=== PATIENT | female | born 1995 | race Caucasian/White ===

== ENCOUNTER 2017-03-24 19:35 | Emergency (ER) | payer OTHER ==
--- NOTE | 2017-03-24 22:09 | ED CLINICAL REPORT ---
Clinical Report - Physicians/Mid Levels [facility] [address] [place] [address] 03/24/2017 19:36 Patient: MÓNICA TOVAR Time Seen: 20:35 Mason 2016. Arrived- By private vehicle. Historian- patient. HISTORY OF PRESENT ILLNESS Chief Complaint: RIGHT FLANK PAIN. This started 90 mins and now gone. The symptoms are described as moderate. The patient has had lower back pain and flank pain. The patient has had urinary frequency. (Patient at 6 PM today sustaining sudden sharp flank pain on the right posterior back. Patient reports the pain was not exacerbated by any movement. She was doing some yard work today, which was landing nature, however did not have pain with such. Patient reports she had some nausea when the pain started. She took Flexeril at onset of such. Patient reports no urgency or dysuria Last menstrual period about 2-3 weeks previously.). REVIEW OF SYSTEMS No nausea, diarrhea, black stools, headache or chills. No skin rash. All systems otherwise negative, except as recorded above. PAST HISTORY Problems: Asthma. Immunizations. LNMP - Last Normal Menstrual Period. Additional Surgeries: no known surgeries. Medications: None. Allergies: None. SOCIAL HISTORY Never smoker. Alcohol use. PHYSICAL EXAM Appearance: Alert. No apparent distress. HEENT: Normal external inspection. CVS: Heart sounds normal. Respiratory: No respiratory distress. Breath sounds normal. Abdomen: Soft and nontender. Bowel sounds normal. No abdominal tenderness. The bowel sounds are not abnormal. Back: No CVA tenderness. Skin: Skin warm. Normal skin color. Neuro: Oriented X 3. LABS, X-RAYS, AND EKG Abdominal CT: IMPRESSION: 1. 2 mm right distal ureteral calculus causing minimal to mild hydroureteronephrosis. 2. Punctate left intrarenal calcification too small to measure. 3. Findings called to the emergency room. All CT scans at this facility use dose modulation, iterative reconstruction, and/or weight-based dosing when appropriate to reduce radiation dose to as low as reasonably achievable. Electronically Final signed by:Meghna Richter MD 03/24/2017 10:13:48 PM. Laboratory Tests: UA-Culture if indicated: (MEDARDO: 03/24/2017 20:17) ( [facility] 03/24/2017 20:57) Final results Test Result Flag Units (Reference) URINE COLOR YELLOW URINE APPEARANCE SL CLOUDY URINE GLUCOSE NEGATIVE (NEGATIVE) URINE BILIRUBIN NEGATIVE (NEGATIVE) URINE KETONE NEGATIVE (NEGATIVE) URINE SPECIFIC GRAVITY 1.015 (1.010-1.030) URINE PH 6.0 (5.0-8.0) URINE PROTEIN NEGATIVE (NEGATIVE) URINE UROBILINOGEN 0.2 EU/dL (0.2-1.0) URINE NITRITE NEGATIVE (NEGATIVE) URINE BLOOD 3+ (NEGATIVE) URINE LEUK ESTERASE NEGATIVE (NEGATIVE) URINE RBC 50-75 rbc/hpf (0-1) URINE WBC 1-3 wbc/hpf (0-1) URINE EPITHELIAL CELLS 1-3 EPI/hpf (0-5) URINE BACTERIA TRACE (<1+) (NONE SEEN) URINE COMMENT CULT NOT INDICATED URINE CULTURES ARE SET-UP BASED ON THE FOLLOWING CRITERIA:POSITIVE NITRITEPOSITIVE LEUKOCYTE ESTERASEGREATER THAN 10 WHITE BLOOD CELLSMODERATE (2+) OR GREATER BACTERIA Urine: (MEDARDO: 03/24/2017 20:17) ( [facility] 03/24/2017 20:36) Final results Test Result Flag Units (Reference) URINE NEGATIVE CBC w Diff: (MEDARDO: 03/24/2017 21:40) ( [facility] 03/24/2017 21:58) Final results Test Result Flag Units (Reference) WHITE BLOOD COUNT 7.8 K/uL (4.5-11.5) RED BLOOD COUNT 4.19 M/uL (4.00-5.20) HEMOGLOBIN 12.7 gm/dL (12.0-16.0) HEMATOCRIT 37.4 % (36.0-46.0) MEAN CELL VOLUME 89 fL (80-100) MEAN CORPUSCULAR HGB 30 pg (26-34) MEAN CORPUSCULAR HGB CONC 34 g/dL (31-37) RED CELL DISTRIBUTION WIDTH 11.8 % (11.6-14.8) PLATELET COUNT 266 K/uL (150-400) NEUTROPHIL % 69.9 % (50-75) LYMPH % 18.2 L % (25-40) MONO % 7.8 % (3-14) EOSINOPHIL % 3.6 % (0-4) BASOPHIL % 0.5 % (0-2) BMP: (MEDARDO: 03/24/2017 21:40) ( [facility]sg[facility] 03/24/2017 22:17) Final results Test Result Flag Units (Reference) GLUCOSE 88 mg/dL (70-110) BUN 10 mg/dL (7-18) CREATININE 0.7 mg/dL (0.6-1.3) Estimated GFR >60 mL/min Estimated GFR- >60 mL/min Note: Persistent reduction over 3 months in eGFR<60 mL/min/1.73 m2 defines CKD. Patients with eGFR values>=60 mL/min/1.73 m2 may also have CKD if evidence ofpersistent proteinuria. Additional information may be foundat www.kidney.org. SODIUM 141 mmol/L (136-145) POTASSIUM 3.8 mmol/L (3.5-5.1) CHLORIDE 104 mmol/L (98-107) CARBON DIOXIDE 27 mmol/L (21-32) CALCIUM 8.8 mg/dL (8.5-10.1) . PROGRESS AND PROCEDURES Course of Care: Pt with with no signs of infection. Patient very stable. No signs of. Patient with no signs of acute surgical abdomen. Small nephrolithiasis that she will likely very well pass. 03/24/2017 20:18 BP: 123/68. HR: 77. RR: 18. O2 saturation: 100%. Temp: 97.7 F. Pain level now: 11/02. Patient is stable. Symptoms better. Patient/family counseled. Differential Diagnosis: I considered gastric etiology, gastritis, gastroenteritis, acute appendicitis, diverticulitis, small bowel obstruction, gallbladder disease, biliary colic, hepatitis, splenic injury, splenic rupture, intraabdominal abscess, urinary tract infection, ovarian cyst, pelvic inflammatory disease, pelvic abscess, abdominal aortic aneurysm, myocardial infarction and diabetic ketoacidosis as a possible cause of abdominal pain in this patient. This is a partial list of diagnoses considered. Disposition: Discharged. Condition: good. CLINICAL IMPRESSION Right nephrolithiasis with renal colic. INSTRUCTIONS (urology: [phone]). Warnings: Further evaluation is necessary. Prescription Medications: Hydrocodone/APAP 5mg / 325mg: take 1 orally every 6 hours as needed for pain. Dispense twenty (20). No refill. Zofran (orally disintegrating tablets) 4 mg: take 1 orally every 6 hours for 5 days as needed for nausea. Dispense twenty (20). No refill. Flomax 0.4 mg: take 1 orally every 24 hours. Dispense ten (10). No refills. Substitution is permissible. Follow-up: Follow up with a specialist in five days. Understanding of the discharge instructions verbalized by patient. (Electronically signed by Kathy Chong P.A.-C 03/24/2017 22:26)
--- NOTE | 2017-03-24 22:09 | ED ORDER SUMMARY ---
..... Patient: MÓNICA TOVAR OrderSheet [facility] VisitID: [id number] [place] [address] 21y, F Registration Date/Time: 03/24/2017 ORDER SHEET Weight: 56.6 kg (stated) Allergies: None GENERAL ORDERS: UA-Culture if indicated Urgent (20:03/24/2017 EKoroleva P.A.-C) (Ack 20:23 LMuller) (20:27 DDavis R.N.) Urine Urgent (20:03/24/2017 EKoroleva P.A.-C) (Ack 20:23 LMuller) (20:27 DDavis R.N.) CT Abd/Pel wo Cont Urgent (21:03/24/2017 EKoroleva P.A.-C) (Ack 21:09 LMuller) (21:23 LMuller) CBC w Diff Urgent (21:03/24/2017 EKoroleva P.A.-C) (Ack 21:09 LMuller) (21:44 DDavis R.N.) BMP Urgent (21:03/24/2017 EKoroleva P.A.-C) (Ack 21:09 LMuller) (21:44 DDavis R.N.) MEDICATION ORDERS: IV FLUIDS: Toradol IV 30 mg (NOW) (21:03/24/2017 EKoroleva P.A.-C) (Ack 21:32 RCollier R.N.) (21:45 DDavis R.N.) IV Saline Lock (21:03/24/2017 EKoroleva P.A.-C) (Ack 21:32 RCollier R.N.) (21:44 DDavis R.N.) ORDER SHEET NOTES: [Electronically signed by Kathy ChongA.-C (22:26 03/24/2017)] [Electronically signed by Jayce White R.N. (22:31 03/24/2017)] [Electronically locked/signed by Jayce White R.N. (22:31 03/24/2017)]
--- NOTE | 2017-03-24 22:09 | ED NURSING NOTES ---
Clinical Report - Nurses [address] [place] [address] 03/24/2017 19:36 Patient: MÓNICA TOVAR TRIAGE Triage time 20:19. Acuity: LEVEL 3. Chief Complaint: (lower back pain with urinary frequency). Alert. No acute distress. TRACEY COMA SCORE: [place] Coma Scale: 15- eyes open spontaneously (4); best verbal response- oriented x 4 (5); best motor response- obeys commands (6). --20:25 Jayce White R.N. 20:18 03/24/17. BP: 123/68 taken on the left arm, while sitting. HR: 77. RR: 18 (regular and unlabored). O2 saturation: 100% on room air. Temp: 97.7 F (oral). Pain level now: 11/02. --20:25 Jayce White R.N. Weight: 56.6 kg stated. Height/Length: 65 inches Per Patient. BMI: 20.8. --20:19 Jayce White R.N. Medications None. --20:21 Jayce White R.N. Allergies None. --20:21 Jayce White R.N. History Arrived by private vehicle. Historian: patient. Accompanied by friend. This started today. Onset. (7 PM). ( back pain, muscle relaxer around 7 pm). SOCIAL HX: Never smoker. Occasional alcohol use. No drug use. FALL RISK ASSESSMENT: Fall risk assessment completed. No fall risk identified. NUTRITIONAL RISK ASSESSMENT: The nutritional risk assessment revealed no deficiencies. FUNCTIONAL ASSESSMENT: Functional assessment: no impairments noted. LEARNING NEEDS ASSESSMENT: The learning needs assessment revealed no barriers. --20:25 Jayce White R.N. PAST MEDICAL HX: Last normal menstrual period- 3 weeks ago. --20:27 Jayce White R.N. PROBLEMS: Asthma. --20:21 Jayce White R.N. ADDITIONAL SURGERIES: no known surgeries. Interventions ID band on patient. To treatment room. --20:25 Jayce White R.N. PHYSICAL ASSESSMENT Ambulatory to room. GENERAL / NEURO / PSYCH: Alert. Oriented X 4. RESPIRATORY: Respirations not labored. Breath sounds within normal limits. CVS: Capillary refill less than 2 seconds. GI / : Abdomen soft and nontender. SKIN: Skin is warm and dry. --20:26 Jayce White R.N. GENERAL / NEURO / PSYCH: Does not appear anxious or in distress. --20:26 Jayce White R.N. NURSING PROGRESS NOTES Head of bed elevated. Reassurance given. Two patient identifiers checked. Call light placed in reach. Side rails up x 1. Bed placed in lowest position. Brakes of bed on. Patient ready for evaluation- chart flagged. Patient waiting for evaluation. --20:26 Jayce White R.N. 21:40 03/24/2017 Site #1 started via IV in the right antecubital space with an 20g angiocath, with aseptic technique and good blood return; one attempt. Blood drawn: rainbow set. Labeled in the presence of the patient and sent to the lab. Saline lock flushed with saline. --21:44 Jayce White R.N. 21:40 03/24/2017 Toradol IVP 30 mg given over 2 minute(s) via site #1. Allergies verified and confirmed 5 rights. IV patency established. IV site checked: no pain, redness, or swelling. IV flushed thoroughly pre- and post-medication administration. IVP given by RN. --21:45 Jayce White R.N. DISPOSITION / DISCHARGE 22:30 03/24/2017 Site #1 removed upon discharge. Manual pressure and bandage applied. --22:30 Jayce White R.N. Departure time: 22:30. Condition at departure: critical. No learning barriers present. Discharge instructions provided and reviewed with the patient. Reviewed warnings. Reviewed medication(s) side effects, precautions, dosing and course information. Prescription(s) given to the patient. Treatments reviewed. Reviewed referrals for followup. Patient verbalized understanding. Written instructions provided in Pashto. The patient was discharged home and accompanied by hardwood sawyer. She left the Emergency Department ambulatory and via private vehicle. Customer Engagement Specialist driving. --22:30 Jayce White R.N. 22:29 03/24/17. BP: 105/57 taken while sitting. HR: 64. RR: 16 (regular and unlabored). O2 saturation: 100% on room air. Pain level now: 0/10. --22:30 Jayce White R.N. Locked/Released at 03/24/2017 22:31 by Jayce White R.N.
--- NOTE | 2017-03-24 22:09 | ED NURSING NOTES ---
Clinical Report - Nurses [facility] [address] [place] [address] 03/24/2017 19:36 Patient: MÓNICA TOVAR TRIAGE Triage time 20:19. Acuity: LEVEL 3. Chief Complaint: (lower back pain with urinary frequency). Alert. No acute distress. TRACEY COMA SCORE: [place] Coma Scale: 15- eyes open spontaneously (4); best verbal response- oriented x 4 (5); best motor response- obeys commands (6). --20:25 Jayce White R.N. 20:18 03/24/17. BP: 123/68 taken on the left arm, while sitting. HR: 77. RR: 18 (regular and unlabored). O2 saturation: 100% on room air. Temp: 97.7 F (oral). Pain level now: 11/02. --20:25 Jayce White R.N. Weight: 56.6 kg stated. Height/Length: 65 inches Per Patient. BMI: 20.8. --20:19 Jayce White R.N. Medications None. --20:21 Jayce White R.N. Allergies None. --20:21 Jayce White R.N. History Arrived by private vehicle. Historian: patient. Accompanied by friend. This started today. Onset. (7 PM). ( back pain, muscle relaxer around 7 pm). SOCIAL HX: Never smoker. Occasional alcohol use. No drug use. FALL RISK ASSESSMENT: Fall risk assessment completed. No fall risk identified. NUTRITIONAL RISK ASSESSMENT: The nutritional risk assessment revealed no deficiencies. FUNCTIONAL ASSESSMENT: Functional assessment: no impairments noted. LEARNING NEEDS ASSESSMENT: The learning needs assessment revealed no barriers. --20:25 Jayce White R.N. PAST MEDICAL HX: Last normal menstrual period- 3 weeks ago. --20:27 Jayce White R.N. PROBLEMS: Asthma. --20:21 Jayce White R.N. ADDITIONAL SURGERIES: no known surgeries. Interventions ID band on patient. To treatment room. --20:25 Jayce White R.N. PHYSICAL ASSESSMENT Ambulatory to room. GENERAL / NEURO / PSYCH: Alert. Oriented X 4. RESPIRATORY: Respirations not labored. Breath sounds within normal limits. CVS: Capillary refill less than 2 seconds. GI / : Abdomen soft and nontender. SKIN: Skin is warm and dry. --20:26 Jayce White R.N. GENERAL / NEURO / PSYCH: Does not appear anxious or in distress. --20:26 Jayce hWite R.N. NURSING PROGRESS NOTES Head of bed elevated. Reassurance given. Two patient identifiers checked. Call light placed in reach. Side rails up x 1. Bed placed in lowest position. Brakes of bed on. Patient ready for evaluation- chart flagged. Patient waiting for evaluation. --20:26 Jayce White R.N. 21:40 03/24/2017 Site #1 started via IV in the right antecubital space with an 20g angiocath, with aseptic technique and good blood return; one attempt. Blood drawn: rainbow set. Labeled in the presence of the patient and sent to the lab. Saline lock flushed with saline. --21:44 Jayec White R.N. 21:40 03/24/2017 Toradol IVP 30 mg given over 2 minute(s) via site #1. Allergies verified and confirmed 5 rights. IV patency established. IV site checked: no pain, redness, or swelling. IV flushed thoroughly pre- and post-medication administration. IVP given by RN. --21:45 Jayce White R.N. DISPOSITION / DISCHARGE 22:30 03/24/2017 Site #1 removed upon discharge. Manual pressure and bandage applied. --22:30 Jayce White R.N. Departure time: 22:30. Condition at departure: critical. No learning barriers present. Discharge instructions provided and reviewed with the patient. Reviewed warnings. Reviewed medication(s) side effects, precautions, dosing and course information. Prescription(s) given to the patient. Treatments reviewed. Reviewed referrals for followup. Patient verbalized understanding. Written instructions provided in Indonesian. The patient was discharged home and accompanied by pest control service technician. She left the Emergency Department ambulatory and via private vehicle. Bottled Beverage Inspector driving. --22:30 Jayce White R.N. 22:29 03/24/17. BP: 105/57 taken while sitting. HR: 64. RR: 16 (regular and unlabored). O2 saturation: 100% on room air. Pain level now: 0/10. --22:30 Jayce White R.N. Locked/Released at 03/24/2017 22:31 by Jayce White R.N.
--- NOTE | 2017-03-24 22:09 | ED ORDER SUMMARY ---
..... Patient: MÓNICA TOVAR OrderSheet [facility] VisitID: [id number] [place] [address] 21y, F Registration Date/Time: 03/24/2017 ORDER SHEET Weight: 56.6 kg (stated) Allergies: None GENERAL ORDERS: UA-Culture if indicated Urgent (20:03/24/2017 EKoroleva P.A.-C) (Ack 20:23 LMuller) (20:27 DDavis R.N.) Urine Urgent (20:03/24/2017 EKoroleva P.A.-C) (Ack 20:23 LMuller) (20:27 DDavis R.N.) CT Abd/Pel wo Cont Urgent (21:03/24/2017 EKoroleva P.A.-C) (Ack 21:09 LMuller) (21:23 LMuller) CBC w Diff Urgent (21:03/24/2017 EKoroleva P.A.-C) (Ack 21:09 LMuller) (21:44 DDavis R.N.) BMP Urgent (21:03/24/2017 EKoroleva P.A.-C) (Ack 21:09 LMuller) (21:44 DDavis R.N.) MEDICATION ORDERS: IV FLUIDS: Toradol IV 30 mg (NOW) (21:03/24/2017 EKoroleva P.A.-C) (Ack 21:32 RCollier R.N.) (21:45 DDavis R.N.) IV Saline Lock (21:03/24/2017 EKoroleva P.A.-C) (Ack 21:32 RCollier R.N.) (21:44 DDavis R.N.) ORDER SHEET NOTES: [Electronically signed by Kathy ChongA.-C (22:26 03/24/2017)] [Electronically signed by Jayce White R.N. (22:31 03/24/2017)] [Electronically locked/signed by Jayce White R.N. (22:31 03/24/2017)]
--- NOTE | 2017-03-24 22:09 | ED CLINICAL REPORT ---
Clinical Report - Physicians/Mid Levels [facility] [address] [place] [address] 03/24/2017 19:36 Patient: MÓNICA TOVAR Time Seen: 20:35 Mason 2016. Arrived- By private vehicle. Historian- patient. HISTORY OF PRESENT ILLNESS Chief Complaint: RIGHT FLANK PAIN. This started 90 mins and now gone. The symptoms are described as moderate. The patient has had lower back pain and flank pain. The patient has had urinary frequency. (Patient at 6 PM today sustaining sudden sharp flank pain on the right posterior back. Patient reports the pain was not exacerbated by any movement. She was doing some yard work today, which was landing nature, however did not have pain with such. Patient reports she had some nausea when the pain started. She took Flexeril at onset of such. Patient reports no urgency or dysuria Last menstrual period about 2-3 weeks previously.). REVIEW OF SYSTEMS No nausea, diarrhea, black stools, headache or chills. No skin rash. All systems otherwise negative, except as recorded above. PAST HISTORY Problems: Asthma. Immunizations. LNMP - Last Normal Menstrual Period. Additional Surgeries: no known surgeries. Medications: None. Allergies: None. SOCIAL HISTORY Never smoker. Alcohol use. PHYSICAL EXAM Appearance: Alert. No apparent distress. HEENT: Normal external inspection. CVS: Heart sounds normal. Respiratory: No respiratory distress. Breath sounds normal. Abdomen: Soft and nontender. Bowel sounds normal. No abdominal tenderness. The bowel sounds are not abnormal. Back: No CVA tenderness. Skin: Skin warm. Normal skin color. Neuro: Oriented X 3. LABS, X-RAYS, AND EKG Abdominal CT: IMPRESSION: 1. 2 mm right distal ureteral calculus causing minimal to mild hydroureteronephrosis. 2. Punctate left intrarenal calcification too small to measure. 3. Findings called to the emergency room. All CT scans at this facility use dose modulation, iterative reconstruction, and/or weight-based dosing when appropriate to reduce radiation dose to as low as reasonably achievable. Electronically Final signed by:Meghna Richter MD 03/24/2017 10:13:48 PM. Laboratory Tests: UA-Culture if indicated: (MEDARDO: 03/24/2017 20:17) ( [facility] 03/24/2017 20:57) Final results Test Result Flag Units (Reference) URINE COLOR YELLOW URINE APPEARANCE SL CLOUDY URINE GLUCOSE NEGATIVE (NEGATIVE) URINE BILIRUBIN NEGATIVE (NEGATIVE) URINE KETONE NEGATIVE (NEGATIVE) URINE SPECIFIC GRAVITY 1.015 (1.010-1.030) URINE PH 6.0 (5.0-8.0) URINE PROTEIN NEGATIVE (NEGATIVE) URINE UROBILINOGEN 0.2 EU/dL (0.2-1.0) URINE NITRITE NEGATIVE (NEGATIVE) URINE BLOOD 3+ (NEGATIVE) URINE LEUK ESTERASE NEGATIVE (NEGATIVE) URINE RBC 50-75 rbc/hpf (0-1) URINE WBC 1-3 wbc/hpf (0-1) URINE EPITHELIAL CELLS 1-3 EPI/hpf (0-5) URINE BACTERIA TRACE (<1+) (NONE SEEN) URINE COMMENT CULT NOT INDICATED URINE CULTURES ARE SET-UP BASED ON THE FOLLOWING CRITERIA:POSITIVE NITRITEPOSITIVE LEUKOCYTE ESTERASEGREATER THAN 10 WHITE BLOOD CELLSMODERATE (2+) OR GREATER BACTERIA Urine: (MEDARDO: 03/24/2017 20:17) ( [facility] 03/24/2017 20:36) Final results Test Result Flag Units (Reference) URINE NEGATIVE CBC w Diff: (MEDARDO: 03/24/2017 21:40) ( [facility] 03/24/2017 21:58) Final results Test Result Flag Units (Reference) WHITE BLOOD COUNT 7.8 K/uL (4.5-11.5) RED BLOOD COUNT 4.19 M/uL (4.00-5.20) HEMOGLOBIN 12.7 gm/dL (12.0-16.0) HEMATOCRIT 37.4 % (36.0-46.0) MEAN CELL VOLUME 89 fL (80-100) MEAN CORPUSCULAR HGB 30 pg (26-34) MEAN CORPUSCULAR HGB CONC 34 g/dL (31-37) RED CELL DISTRIBUTION WIDTH 11.8 % (11.6-14.8) PLATELET COUNT 266 K/uL (150-400) NEUTROPHIL % 69.9 % (50-75) LYMPH % 18.2 L % (25-40) MONO % 7.8 % (3-14) EOSINOPHIL % 3.6 % (0-4) BASOPHIL % 0.5 % (0-2) BMP: (MEDARDO: 03/24/2017 21:40) ( MsgRcvd 03/24/2017 22:17) Final results Test Result Flag Units (Reference) GLUCOSE 88 mg/dL (70-110) BUN 10 mg/dL (7-18) CREATININE 0.7 mg/dL (0.6-1.3) Estimated GFR >60 mL/min Estimated GFR- >60 mL/min Note: Persistent reduction over 3 months in eGFR<60 mL/min/1.73 m2 defines CKD. Patients with eGFR values>=60 mL/min/1.73 m2 may also have CKD if evidence ofpersistent proteinuria. Additional information may be foundat www.kidney.org. SODIUM 141 mmol/L (136-145) POTASSIUM 3.8 mmol/L (3.5-5.1) CHLORIDE 104 mmol/L (98-107) CARBON DIOXIDE 27 mmol/L (21-32) CALCIUM 8.8 mg/dL (8.5-10.1) . PROGRESS AND PROCEDURES Course of Care: Pt with with no signs of infection. Patient very stable. No signs of. Patient with no signs of acute surgical abdomen. Small nephrolithiasis that she will likely very well pass. 03/24/2017 20:18 BP: 123/68. HR: 77. RR: 18. O2 saturation: 100%. Temp: 97.7 F. Pain level now: 11/02. Patient is stable. Symptoms better. Patient/family counseled. Differential Diagnosis: I considered gastric etiology, gastritis, gastroenteritis, acute appendicitis, diverticulitis, small bowel obstruction, gallbladder disease, biliary colic, hepatitis, splenic injury, splenic rupture, intraabdominal abscess, urinary tract infection, ovarian cyst, pelvic inflammatory disease, pelvic abscess, abdominal aortic aneurysm, myocardial infarction and diabetic ketoacidosis as a possible cause of abdominal pain in this patient. This is a partial list of diagnoses considered. Disposition: Discharged. Condition: good. CLINICAL IMPRESSION Right nephrolithiasis with renal colic. INSTRUCTIONS (urology: [phone]). Warnings: Further evaluation is necessary. Prescription Medications: Hydrocodone/APAP 5mg / 325mg: take 1 orally every 6 hours as needed for pain. Dispense twenty (20). No refill. Zofran (orally disintegrating tablets) 4 mg: take 1 orally every 6 hours for 5 days as needed for nausea. Dispense twenty (20). No refill. Flomax 0.4 mg: take 1 orally every 24 hours. Dispense ten (10). No refills. Substitution is permissible. Follow-up: Follow up with a specialist in five days. Understanding of the discharge instructions verbalized by patient. (Electronically signed by Kathy Chong P.A.-C 03/24/2017 22:26)
--- NOTE | 2017-03-24 22:13 | DIAGNOSTIC IMAGING REPORT ---
PROCEDURE: CT ABDOMEN/PELVIS W/O CONTRAST INDICATION: ABDOMINAL PAIN TECHNIQUE: Axial CT images were obtained through the abdomen and pelvis without IV contrast. Coronal and sagittal reformations were created. COMPARISON: None. FINDINGS: Trace right hydronephrosis. Vague punctate densities within the intrarenal collecting system on the right without a discrete calcification. A punctate calcification within the left mid pole collecting system. Mild right hydroureter. 2 mm punctate calculus in the right distal ureter about 2 cm from the right ureterovesicular junction. No urinary bladder calcifications. Clear lung bases. Normal sized heart. No hiatal hernia. The unenhanced appearance of the liver, gallbladder, adrenal glands, kidneys, pancreas and spleen is normal. The abdominal aorta is normal in its course and caliber. There are no suspicious calcifications, retroperitoneal adenopathy or masses. The stomach, upper bowel loops, and mesentery are normal. Intact anterior abdominal wall. No free fluid or inflammation. The unenhanced appearance of the uterus, ovaries, urinary bladder, pelvic vessels, and pelvic bowel loops is normal. Normal appendix. No suspicious calcifications, or mass. Trace physiologic free fluid. Intact osseous structures. IMPRESSION: 1. 2 mm right distal ureteral calculus causing minimal to mild hydroureteronephrosis. 2. Punctate left intrarenal calcification too small to measure. 3. Findings called to the emergency room. All CT scans at this facility use dose modulation, iterative reconstruction, and/or weight-based dosing when appropriate to reduce radiation dose to as low as reasonably achievable.
--- NOTE | 2017-03-24 22:31 | ED MAR SUMMARY ---
..... Medication Administration Record [facility] [address] [place] [address] Patient: MÓNICA TOVAR Visit ID: [id number] 21y, F Weight: 56.6 kg Height/Length: 65 in BMI: 20.8 ALLERGIES: None Given 21:40 03/24/2017 Jayce White R.N. Medication Administered: TORADOL [IVP], Dose: 30 mg IVP over 2 minute(s), Site: #1 right AC. Medication Ordered: Toradol IV 30 mg (NOW).
--- NOTE | 2017-03-24 22:31 | ED MAR SUMMARY ---
..... Medication Administration Record [facility] [address] [place] [address] Patient: MÓNICA TOVAR Visit ID: [id number] 21y, F Weight: 56.6 kg Height/Length: 65 in BMI: 20.8 ALLERGIES: None Given 21:40 03/24/2017 Jayce White R.N. Medication Administered: TORADOL [IVP], Dose: 30 mg IVP over 2 minute(s), Site: #1 right AC. Medication Ordered: Toradol IV 30 mg (NOW).
--- NOTE | 2017-03-24 22:31 | ED DISCHARGE INSTRUCTIONS ---
Patient: MÓNICA TOVAR General Instructions [facility] VisitID: [id number] [place] [address] 21y, F Registration Date/Time: 03/24/2017 Right nephrolithiasis with renal colic. INSTRUCTIONS (urology: [phone]). Warnings: Further evaluation is necessary. Prescription Medications: Hydrocodone/APAP 5mg / 325mg: take 1 orally every 6 hours as needed for pain. Dispense twenty (20). No refill. Zofran (orally disintegrating tablets) 4 mg: take 1 orally every 6 hours for 5 days as needed for nausea. Dispense twenty (20). No refill. Flomax 0.4 mg: take 1 orally every 24 hours. Dispense ten (10). No refills. Substitution is permissible. Follow-up: Follow up with a specialist in five days. Understanding of the discharge instructions verbalized by patient. ADDITIONAL INFORMATION Kidney Stone (W/ Colic) The sharp cramping pain and nausea/vomiting that you have is due to a small stone which has formed in the kidney and is now passing down a narrow tube (ureter) on its way to your bladder. Once it reaches your bladder, the pain will stop. The stone may pass in your urine stream in one piece. [The size may be 1/16" to 1/4" (1-6mm)]. Or, the stone may also break up into jovanny fragments which you may not even notice. Once you have had a kidney stone, you are at risk for developing another one in the future. Home Care: Drink plenty of fluids (at least 8 to 10 glasses of water a day). Most stones will pass on their own, but may take from a few hours to a few days. Sometimes the stone is too large to pass by itself and special methods will have to be used to remove the stone. Each time you urinate, do so in a jar. Pour the urine from the jar through the strainer and into the toilet. Continue doing this until 24 hours after your pain stops. By then, if there was a kidney stone, it should pass from your bladder. Some stones dissolve into sand-like particles and pass right through the strainer. In that case, you wont ever see a stone. Save any stone that you find in the strainer and bring it to your doctor for analysis. It may be possible to prevent certain types of stones from forming. Therefore, it is important to know what kind of stone you have. Try to stay as active as possible since this will help the stone pass. Do not stay in bed unless your pain prevents you from getting up. You may notice a red, pink or brown color to your urine. This is normal while passing a kidney stone. Follow Up with your doctor or return to this facility if the pain lasts more than 48 hours. Get Prompt Medical Attention if any of the following occur: Pain that is not controlled by the medicine given Repeated vomiting or unable to keep down fluids Weakness, dizziness or fainting Fever of 100.4F (38C) or higher, or as directed by your healthcare provider Passage of solid red or brown urine (can't see through it) or urine with lots of blood clots Unable to pass urine for 8 hours and increasing bladder pressure Blood In The Urine Blood in the urine ("hematuria") has many possible causes. If it occurs after an injury (such as a car accident or fall), it is most often a sign of bruising to the kidney or bladder. Common medical causes of blood in the urine include urinary tract infection, kidney stone, inflammation, tumors, or certain other diseases of the kidney or bladder. Menstruation can cause blood to appear in the urine sample, although it is not coming from the urinary tract. If only a trace amount of blood is present, it will show up on the urine test, even though the urine may be yellow and not pink or red. This may occur with any of the above conditions, as well as heavy exercise or high fever. In this case, your doctor may want to repeat the urine test on another day. This will show if the blood is still present. If so, then other tests can be done to find out the cause. Home Care: If your urine does not appear bloody (pink, brown or red) then you do not need to restrict your activity in any way. If you can see blood in your urine, rest and avoid heavy exertion until your next exam. Do not use aspirin or anti-inflammatory medicine like ibuprofen (Motrin, Advil) or naproxen (Naprosyn, Aleve). These thin the blood and may increase bleeding. Follow Up with your doctor or as advised by our staff. If you were injured and had blood in your urine, you should have a repeat urine test in 1-2 days. Contact your doctor or return to this facility for this test. [NOTE: A radiologist will review any X-rays that were taken. We will notify you of any new findings that may affect your care.] Get Prompt Medical Attention if any of the following occur: Bright red blood or blood clots in the urine (if a new symptom) Weakness, dizziness or fainting New groin, abdominal or back pain Fever of 100.4F (38C) or higher, or as directed by your healthcare provider Repeated vomiting Bleeding from nose, gums or easy bruising Hydrocodone Bitartrate, Acetaminophen Oral tablet What is this medicine? ACETAMINOPHEN; HYDROCODONE (a set a ANETA summer fen; yojana droe KOE done) is a pain reliever. It is used to treat mild to moderate pain. How should I use this medicine? Take this medicine by mouth. Swallow it with a full glass of water. Follow the directions on the prescription label. If the medicine upsets your stomach, take the medicine with food or milk. Do not take more than you are told to take. Talk to your animal caretaker supervisor regarding the use of this medicine in children. This medicine is not approved for use in children. What side effects may I notice from receiving this medicine? Side effects that you should report to your doctor or health animal care technician as soon as possible: allergic reactions like skin rash, itching or hives, swelling of the face, lips, or tongue breathing problems confusion feeling faint or lightheaded, falls stomach pain yellowing of the eyes or skin Side effects that usually do not require medical attention (report to your doctor or health animal care technician if they continue or are bothersome): nausea, vomiting stomach upset What may interact with this medicine? alcohol antihistamines isoniazid medicines for depression, anxiety, or psychotic disturbances medicines for sleep muscle relaxants naltrexone narcotic medicines (opiates) for pain phenobarbital ritonavir tramadol What if I miss a dose? If you miss a dose, take it as soon as you can. If it is almost time for your next dose, take only that dose. Do not take double or extra doses. Where should I keep my medicine? Keep out of the reach of children. This medicine can be abused. Keep your medicine in a safe place to protect it from theft. Do not share this medicine with anyone. Selling or giving away this medicine is dangerous and against the law. Store at room temperature between 15 and 30 degrees C (59 and 86 degrees F). Protect from light. Keep container tightly closed. Throw away any unused medicine after the expiration date. Discard unused medicine and used packaging carefully. Pets and children can be harmed if they find used or lost packages. What should I tell my health care provider before I take this medicine? They need to know if you have any of these conditions: brain tumor Crohn's disease, inflammatory bowel disease, or ulcerative colitis drink more than 3 alcohol-containing drinks per day drug abuse or addiction head injury heart or circulation problems kidney disease or problems going to the bathroom liver disease lung disease, asthma, or breathing problems an unusual or allergic reaction to acetaminophen, hydrocodone, other opioid analgesics, other medicines, foods, dyes, or preservatives or trying to get breast-feeding What should I watch for while using this medicine? Tell your doctor or health animal care technician if your pain does not go away, if it gets worse, or if you have new or a different type of pain. You may develop tolerance to the medicine. Tolerance means that you will need a higher dose of the medicine for pain relief. Tolerance is normal and is expected if you take the medicine for a long time. Do not suddenly stop taking your medicine because you may develop a severe reaction. Your body becomes used to the medicine. This does NOT mean you are addicted. Addiction is a behavior related to getting and using a drug for a non-medical reason. If you have pain, you have a medical reason to take pain medicine. Your doctor will tell you how much medicine to take. If your doctor wants you to stop the medicine, the dose will be slowly lowered over time to avoid any side effects. You may get drowsy or dizzy when you first start taking the medicine or change doses. Do not drive, use machinery, or do anything that may be dangerous until you know how the medicine affects you. Stand or sit up slowly. There are different types of narcotic medicines (opiates) for pain. If you take more than one type at the same time, you may have more side effects. Give your health care provider a list of all medicines you use. Your doctor will tell you how much medicine to take. Do not take more medicine than directed. Call emergency for help if you have problems breathing. The medicine will cause constipation. Try to have a bowel movement at least every 2 to 3 days. If you do not have a bowel movement for 3 days, call your doctor or health animal care technician. Too much acetaminophen can be very dangerous. Do not take Tylenol (acetaminophen) or medicines that contain acetaminophen with this medicine. Many non-prescription medicines contain acetaminophen. Always read the labels carefully. Ondansetron Oral disintegrating tablet What is this medicine? ONDANSETRON (on JONAS se violet) is used to treat nausea and vomiting caused by chemotherapy. It is also used to prevent or treat nausea and vomiting after surgery. How should I use this medicine? These tablets are made to dissolve in the mouth. Do not try to push the tablet through the foil backing. With dry hands, peel away the foil backing and gently remove the tablet. Place the tablet in the mouth and allow it to dissolve, then swallow. While you may take these tablets with water, it is not necessary to do so. Talk to your animal caretaker supervisor regarding the use of this medicine in children. Special care may be needed. What side effects may I notice from receiving this medicine? Side effects that you should report to your doctor or health animal care technician as soon as possible: allergic reactions like skin rash, itching or hives, swelling of the face, lips, or tongue breathing problems dizziness fast or irregular heartbeat feeling faint or lightheaded, falls fever and chills swelling of the hands and feet tightness in the chest Side effects that usually do not require medical attention (report to your doctor or health animal care technician if they continue or are bothersome): constipation or diarrhea headache What may interact with this medicine? Do not take this medicine with any of the following medications: -apomorphine -cisapride -dofetilide -dronedarone -pimozide -thioridazine -ziprasidone This medicine may also interact with the following medications: -carbamazepine -phenytoin -rifampicin -tramadol -other medicines that prolong the QT interval (cause an abnormal heart rhythm) What if I miss a dose? If you miss a dose, take it as soon as you can. If it is almost time for your next dose, take only that dose. Do not take double or extra doses. Where should I keep my medicine? Keep out of the reach of children. Store between 2 and 30 degrees C (36 and 86 degrees F). Throw away any unused medicine after the expiration date. What should I tell my health care provider before I take this medicine? They need to know if you have any of these conditions: heart disease history of irregular heartbeat liver disease low levels of magnesium or potassium in the blood an unusual or allergic reaction to ondansetron, granisetron, other medicines, foods, dyes, or preservatives or trying to get breast-feeding What should I watch for while using this medicine? Check with your doctor or health animal care technician as soon as you can if you have any sign of an allergic reaction. You have been given the following additional information: Kidney Stone W/ Colic Hematuria Hydrocodone Bitartrate, Acetaminophen Oral tablet Ondansetron Oral disintegrating tablet (Electronically signed by Katyh Chong P.A.-C 03/24/2017 22:26)
--- NOTE | 2017-03-24 22:31 | ED MED RECONCILIATION SUMMARY ---
Patient: MÓNICA TOVAR Medication Reconciliation Report [facility] VisitID: [id number] [address] [place] [address] 21y, F Registration Date/Time: 03/24/2017 Weight: 56.6 kg Height/Length: 65 in. BMI: 20.8 ALLERGIES: None The patient's Home Medications are listed below: NONE. The source(s) of the original Home Medication information: Not obtained. The following Medications were given to the patient in the Emergency Department: Toradol [IVP] IVP 30 mg, administered: 03/24/2017 9:40:00 PM The following Medications were prescribed to the patient: Hydrocodone/APAP 5mg / 325mg: take 1 orally every 6 hours as needed for pain. Dispense twenty (20). No refill. -- Kathy Chong, P.A.-C Zofran (orally disintegrating tablets) 4 mg: take 1 orally every 6 hours for 5 days as needed for nausea. Dispense twenty (20). No refill. -- Kathy Chong, P.A.-C Flomax 0.4 mg: take 1 orally every 24 hours. Dispense ten (10). No refills. Substitution is permissible. -- Kathy Chong, P.A.-C
--- NOTE | 2017-03-24 22:31 | ED MED RECONCILIATION SUMMARY ---
Patient: MÓNICA TOVAR Medication Reconciliation Report [facility] VisitID: [id number] [address] [place] [address] 21y, F Registration Date/Time: 03/24/2017 Weight: 56.6 kg Height/Length: 65 in. BMI: 20.8 ALLERGIES: None The patient's Home Medications are listed below: NONE. The source(s) of the original Home Medication information: Not obtained. The following Medications were given to the patient in the Emergency Department: Toradol [IVP] IVP 30 mg, administered: 03/24/2017 9:40:00 PM The following Medications were prescribed to the patient: Hydrocodone/APAP 5mg / 325mg: take 1 orally every 6 hours as needed for pain. Dispense twenty (20). No refill. -- Kathy Chong, P.A.-C Zofran (orally disintegrating tablets) 4 mg: take 1 orally every 6 hours for 5 days as needed for nausea. Dispense twenty (20). No refill. -- Kathy Chong, P.A.-C Flomax 0.4 mg: take 1 orally every 24 hours. Dispense ten (10). No refills. Substitution is permissible. -- Kathy Chong, P.A.-C
== END 2017-03-24 22:30 | disposition home or self-care (01) ==
LOC: ED SRH 19:35
DX: N20.0 Calculus of kidney (principal)
CPT/HCPCS: 90004; 90047; 93070; 95059